=== PATIENT | female | born 1990 | race Hispanic/Latino ===

== ENCOUNTER 2017-01-26 05:20 | Inpatient (IN) ==
[2017-01-26] MEDS ORDERED: PEPCID IV PRN (05:31)
[2017-01-26] MEDS ORDERED: TYLENOL PO PRN (05:31)
[2017-01-26] MEDS ORDERED: PITOCIN 30 UNITS/LR 30 UNITS/500 ML IV.SOLN IV SCH (05:31)
[2017-01-26] MEDS ORDERED: PEPCID PO PRN (05:31)
[2017-01-26] MEDS ORDERED: LR 1,000 ML IV SCH (05:31)
[2017-01-26] MEDS ORDERED: KEFZOL 1 GM/D5W 1 GM/50 ML IVPB IV PRN (05:31)
[2017-01-26] MEDS ORDERED: ZOFRAN IV PRN (05:31)
[2017-01-26] MEDS ORDERED: STADOL IV PRN (05:31)
[2017-01-26] MEDS ORDERED: SODIUM CHLORIDE 0.9% INJ SCH (05:45)
[2017-01-26 06:01] LABS: MANUAL DIFF NEEDED? NO; URINE SOURCE VOIDED
[2017-01-26 06:03] LABS: BASO% 0.1 % (0.0-0.8); EOS# 0.08 X1000 (0.0-0.7); EOS% 0.9 % (0.0-10.0); HEMOGLOBIN 12.2 g/dL (12.0-16.0); IMM GRAN# 0.01 X1000 (0.0-0.04); IMM GRAN% 0.1 % (0.0-0.5); LYMPH# 2.83 X1000 (1.2-3.4); LYMPH% 32.9 % (20.5-51.1); MCH 29.4 PG (27-31); MCHC 33.9 g/dL (33-37); MCV 86.7 FL (81-99); MONO# 0.63 X1000 (0.11-0.59); MONO% 7.3 % (1.7-9.3); MPV 10.2 FL (7.4-10.4); NEUT% 58.7 % (42.2-75.2); PLT 168 X1000 (130-400); RBC 4.15 XMIL (4.2-5.4)
[2017-01-26 06:21] LABS: BILIRUBIN URINE NEGATIVE (NEGATIVE); BLOOD URINE 4+ (NEGATIVE); CLARITY SL. CLOUDY (CLEAR); COLOR YELLOW; GLUCOSE URINE NEGATIVE (NEGATIVE); LEUKOCYTES URINE 2+ (NEGATIVE); NITRITE URINE NEGATIVE (NEGATIVE); PROTEIN URINE NEGATIVE (NEGATIVE); SP GRAVITY URINE 1.005; UROBILINOGEN URINE NORMAL
[2017-01-26] MEDS ORDERED: MINERAL OIL TOP ONE (06:59)
[2017-01-26] MEDS ORDERED: XYLOCAINE-MPF 1% INJ ONE (06:59)
[2017-01-26] MEDS ORDERED: HYDROXYZINE PO PRN (09:29)
[2017-01-26] MEDS ORDERED: HYDROXYZINE IM PRN (09:29)
[2017-01-26] MEDS ORDERED: MINERAL OIL PO PRN (09:29)
[2017-01-26] MEDS ORDERED: AMBIEN PO PRN (09:29)
[2017-01-26] MEDS ORDERED: XYLOCAINE-MPF 1% INJ PRN (09:29)
[2017-01-26] MEDS ORDERED: PITOCIN 20 UNITS/LR 20 UNITS/1,000 ML IV.SOLN IV SCH (09:29)
[2017-01-26] MEDS ORDERED: NORCO-5 PO PRN (09:29)
[2017-01-26] MEDS ORDERED: PITOCIN 30 UNITS/LR 30 UNITS/500 ML IV.SOLN IV ONE (09:29)
[2017-01-26] MEDS ORDERED: BENADRYL PO PRN (09:29)
[2017-01-26] MEDS ORDERED: PERI MEDS (DERMOPLAST/NUPERCAINAL/TUCKS) MISC PRN (09:29)
[2017-01-26] MEDS ORDERED: CYTOTEC PO PRN (09:29)
[2017-01-26] MEDS ORDERED: M-M-R II VACCINE SUBQ ONE (09:29)
[2017-01-26] MEDS ORDERED: PITOCIN IM PRN (09:29)
[2017-01-26] MEDS ORDERED: BENADRYL IV PRN (09:29)
[2017-01-26] MEDS ORDERED: BOOSTRIX VACCINE IM ONE (09:29)
[2017-01-26] MEDS: MOTRIN PO PRN ×2 (11:22→23:33)
[2017-01-26] MEDS: PERCOCET-5 PO PRN ×2 (11:22→23:32)
--- NOTE | 2017-01-26 13:56 | OPERATIVE NOTE ---
PROCEDURE DATE: 01/26/2017 DELIVERY PHYSICIAN: Dr. Carcamo. TYPE DELIVERY: Vaginal delivery with outlet forceps. ANESTHESIA: IV sedation and local. FINDINGS: At 0858 a 7-pound 2-ounce female was delivered in occiput anterior presentation after rotation occiput posterior. Apgars are 9 at 1 minute and 10 at 5 minutes. SUMMARY: Ms. Heller is a 26-year-old 3, para 2-0-0-2. Her blood type is O positive. Rubella immune. Hepatitis B surface antigen, HIV, and group B strep is negative. She has had well controlled gestational diabetes. She presented to labor and delivery this morning with onset of labor. Membranes were ruptured later and noted to be clear. There is no signs of distress. She progressed with labor quickly became complete, she began pushing. In spite of very good pushing efforts there was very little descent. Examination revealed occiput posterior presentation. With patient dorsal lithotomy position vacuum forceps was applied at 0 station. With the patient pushing and gentle traction there was rotation of occiput posterior to occiput anterior and the delivered quickly at that point. The vacuum forceps was removed. Shoulders and body delivered without complications. The cord was reduced. The oropharynx was bulb suctioned. Cord clamped, cut, the infant was handed to the nurses further care and evaluation. Cord blood was obtained. Placenta was spontaneously delivered and was intact. There was a 2nd degree midline tear which was repaired in layers using 2-0 Vicryl suture after local anesthesia. Blood loss approximately 150 mL. There were no complications. Patient remained in the LDR recovering without difficulty. cc: Silvestre Carcamo MD
[2017-01-26] MEDS: PERCOCET-10 PO PRN (14:38)
[2017-01-26] MEDS: PERICOLACE PO SCH (20:00)
[2017-01-27] MEDS: NORCO-10 PO PRN ×3 (06:19→18:22)
[2017-01-27 06:46] LABS: HEMATOCRIT 29.9 % (37.0-47.0); HEMOGLOBIN 9.8 g/dL (12.0-16.0); MCH 29.3 PG (27-31); MCHC 32.8 g/dL (33-37); MCV 89.3 FL (81-99); MPV 10.8 FL (7.4-10.4); RBC 3.35 XMIL (4.2-5.4)
[2017-01-27] MEDS: PRECARE PO SCH (08:40)
[2017-01-27] MEDS: MOTRIN PO PRN ×2 (11:25→18:25)
[2017-01-27] MEDS: PERICOLACE PO SCH (19:41)
[2017-01-28] MEDS: MOTRIN PO PRN (04:56)
[2017-01-28] MEDS: PERCOCET-10 PO PRN (04:56)
[2017-01-28 08:23] VITALS: BP 107/63
[2017-01-28] MEDS: PRECARE PO SCH (08:27)
== END 2017-01-28 16:00 | disposition home or self-care (01) ==
LOC: P.OPLD 05:20 → P.LD 05:29 → P.WC 14:36
PROVIDERS: ADMIT Obstetrics & Gynecology; ATTEND Obstetrics & Gynecology